=== PATIENT | female | born 1975 | race Caucasian/White ===

== ENCOUNTER → 2018-08-27 | Outpatient (CLI) | payer BC | END | disposition home or self-care (01) | LOC: LAB SHORT 11:20 → LAB EV 11:20 | DX: R31.9 Hematuria, unspecified (principal) | CPT/HCPCS: 87086 ==

== ENCOUNTER → 2018-09-04 | Outpatient (CLI) | payer BC | END | disposition home or self-care (01) | LOC: LAB EV 16:39 → LAB SHORT 16:39 | DX: M54.5 Low back pain (principal) | CPT/HCPCS: 87086 ==